=== PATIENT | male | born 1965 | race Two or more races ===

== ENCOUNTER 2018-03-27 20:32 | Emergency (ER) | payer OTHER ==
[~2018-03-27] VITALS: Ht 180.3 cm; Wt 122.5 kg
[2018-03-27] MEDS ORDERED: FORTAMET1000 MG (20:52)
[2018-03-27] MEDS ORDERED: CLOPIDOGREL BIS75 MG (20:52)
[2018-03-27] MEDS ORDERED: LOSARTAN-HCTZ1 EAC1 (20:52)
== END 2018-03-27 22:40 | disposition home or self-care (01) ==
LOC: ER 20:32
DX: J20.9 Acute bronchitis, unspecified (principal)

== ENCOUNTER 2018-04-30 05:14 | Inpatient (IN) | payer OTHER ==
[~2018-04-30] VITALS: Ht 180.3 cm; Wt 122.5 kg
[~2018-04-30 05:14] MED LIST: CLOPIDOGREL BIS75 MG; FORTAMET1000 MG; LOSARTAN-HCTZ1 EAC1
--- NOTE | 2018-04-30 05:55 | NUR ---
SE RECIBE PTE ALERTA Y ORIENTADO POR DELIA. PTE REFIERE PRESENTAR FATIGA AL CAMINAR Y TOS DESDE HACE 2 BRAVO.
--- NOTE | 2018-04-30 07:58 | NUR ---
PTE EVALUADO POR EL DR [place]E [place]. SE ORIENTA SOBRE EL MISMO, LO CUAL REFIERE ENTENDER, SE REALIZAN PRUEBAS DE LABORATORIO Y SE ADMINISTRAN [facility] ORDEN MEDICA Y SIGUIENDO MEDIDAS ASEPICAS. ABG Y TERAPIAS YA NOTIFICADAS A PERSONAL DE TURNO.
--- NOTE | 2018-04-30 16:12 | NUR ---
SE RECIBE PTE ALERTA Y ORIENTADO X3 EN CAMA CON BARANDAS ELEVADAS. SE RECIBE PTE CON CANULA A 3L, SE RECIBE PTE CANALIZADO AREA TESS DE EDEMA Y DE ENROJECIMIENTO.PTE EN ESPERA DE CONSULTA CON .
== END 2018-05-04 10:15 | disposition designated cancer center or children's hospital (05) | DRG 292 ==
LOC: ER 05:14 → MEDI 17:53
PROVIDERS: ADMIT Internal Medicine
PROC: 4A12X4Z Monitoring of Cardiac Electrical Activity, External Approach (ICD-10-PCS; principal; 2018-04-30)
PROC: 4A033R1 Measurement of Arterial Saturation, Peripheral, Percutaneous Approach (ICD-10-PCS; 2018-04-30)
PROC: 3E0F7GC Introduction of Other Therapeutic Substance into Respiratory Tract, Via Natural or Artificial Opening (ICD-10-PCS; 2018-04-30)
PROC: B246ZZZ Ultrasonography of Right and Left Heart (ICD-10-PCS; 2018-05-01)
DX: I11.0 Hypertensive heart disease with heart failure (principal); J44.1 Chronic obstructive pulmonary disease with (acute) exacerbation; I50.23 Acute on chronic systolic (congestive) heart failure; J40 Bronchitis, not specified as acute or chronic